=== PATIENT | female | born 1970 | race Two or more races ===

== ENCOUNTER → 2016-05-21 | Outpatient (CLI) | payer OTHER ==
[~2016-05-21] MED LIST: MEDROL DOSE PACK
== END | disposition home or self-care (01) ==
LOC: CFH 06:57
PROVIDERS: ATTEND Family Medicine
DX: Z12.31 Encounter for screening mammogram for malignant neoplasm of breast (principal)
CPT/HCPCS: G0202

== ENCOUNTER 2017-01-23 19:14 | Emergency (ER) | payer OTHER ==
[~2017-01-23] VITALS: Ht 162.6 cm; Wt 78.4 kg
[2017-01-23 19:17] VITALS: BP 134/85
[2017-01-23] MEDS ORDERED: DIPHENHYDRAMINE 50 MG/ML, 1ML ONE (20:10)
[2017-01-23] MEDS ORDERED: DIPHENHYDRAMINE 50 MG/ML, 1ML IM ONE (20:30)
== END 2017-01-23 20:29 | disposition home or self-care (01) ==
LOC: ED 20:25
DX: T78.40XA Allergy, unspecified, initial encounter (principal)
CPT/HCPCS: 96372; 99283; J1200; J7512